=== PATIENT | female | born 1965 | race Caucasian/White ===

== ENCOUNTER 2023-07-21 11:54 | Emergency (ER) | payer SELFPAY ==
[2023-07-21 12:11] VITALS: BP 128/77; PULSE 81; RESP 17; TEMP 36.8; O2SAT 93; BMI 38.9
--- NOTE | 2023-07-21 13:20 | W.ED.BACK ---
HPI - Back Pain/Injury General: Chief Complaint: Back Pain/Injury Stated Complaint: low back pain/ hand are numb Time Seen by Provider: 07/21/23 13:15 History of Present Illness: 58-year-old female with a history of morbid obesity who presents emergency room with back pain. She has multiple somatic complaints. She says she fell a few weeks ago and has been having some tingling in her fingers. She is also having right low back pain after going to see her chiropractor. She is having some left sciatic type pain. No saddle numbness, no urinary retention or incontinence, no focal motor deficit, no sensory deficit. no recent fever. no cough. no shortness of breath. no chest pain. no abdominal pain. no nausea or vomiting. no dysuria. no altered mental status. no edema. Review of Systems Narrative: Constitutional symptoms: Negative except as documented in HPI. Skin symptoms: Negative except as documented in HPI. Eye symptoms: Negative except as documented in HPI. ENMT symptoms: Negative except as documented in HPI. Respiratory symptoms: Negative except as documented in HPI. Cardiovascular symptoms: Negative except as documented in HPI. Gastrointestinal symptoms: Negative except as documented in HPI. Genitourinary symptoms: Negative except as documented in HPI. Musculoskeletal symptoms: Negative except as documented in HPI. Neurologic symptoms: Negative except as documented in HPI. Psychiatric symptoms: Negative except as documented in HPI. Endocrine symptoms: Negative except as documented in HPI. Physical Exam Narrative: EXAM NARRATIVE: General: Alert, no acute distress. Head: Normocephalic Neck: Trachea midline Eye: Extraocular movements are intact. Ears, nose, mouth and throat: Oral mucosa moist Respiratory: Respirations are non-labored Musculoskeletal: Normal ROM Back: no step off, no focal tenderness, some paraspinal muscle tenderness Neurological: Alert and oriented to person, place, time, and situation, No focal neurological deficit observed. Psychiatric: Cooperative, appropriate mood & affect. Course Vital Signs: Vital signs: Vital Signs Temperature 98.2 F 07/21/23 12:11 Pulse Rate 81 07/21/23 12:11 Respiratory Rate 17 07/21/23 12:11 Blood Pressure 128/77 07/21/23 12:11 Pulse Oximetry 93 07/21/23 12:11 Oxygen Delivery Me thod Room Air 07/21/23 12:11 MDM - Back Pain/Injury Medical Decision Making Patient is having several somatic type complaints with no real trauma. I do not feel like x-rays would be beneficial today. We discussed this. She is having sciatic type pain. Lumbar muscle strain type pain. And some radicular type issues as well. We discussed that anti-inflammatories and a muscle relaxer would be the best course of action for this and if the pain persist she needs to go see her primary and consider physical therapy and then may be an MRI. Assessment and plan: - Discharged home - Discussed plan with patient. Answered any questions. - Evaluation and treatment of this problem were appropriate in the emergency setting. No radiology studies performed this visit Discharge Plan Discharge Patient Disposition: Home Clinical Impression: Strain of lumbar region Condition: Stable Prescriptions: New cyclobenzaprine 10 mg tablet 10 mg PO Q8H Qty: 20 0RF prednisone 20 mg tablet 60 mg PO DAILY Qty: 20 0RF Rx Instructions: 3 tabs (60 mg) x 3 days. 2 tabs (40 mg) x 3 days. 1 tab (20 mg) x 3 days. 1/2 tab (10 mg) x 4 days diclofenac sodium 50 mg tablet,delayed release (DR/EC) 50 mg PO Q12H Qty: 20 0RF Discharge Orders: Discharge ED (Routine); Ordered 07/21/23 Ordered By: Leatha Aguilar Discharge Diet: Usual diet Discharge Activity: Increase activity as tolerated Patient Instructions: Low Back Strain (ED), Lower Back Exercises (ED) Activity Restrictions/Additional Instructions: You have been screened and evaluated and felt safe for discharge. Health conditions do change or evolve sometimes and as such it is important that you follow up with your Primary Doctor to be re checked, 3-5 days is a general good time frame for follow up. You are always welcome to return to the ED for re assessment if your symptoms are worsening or you have new concerns Coding Level of Care Code ED [facility] Supervisor [facility] for Dave Guzman
[2023-07-21 13:56] VITALS: BP 103/58; PULSE 79; RESP 16; TEMP 36.8; O2SAT 94
== END 2023-07-21 13:57 | disposition home or self-care (01) ==
PROVIDERS: Emergency Provider Emergency Medicine
DX: S39.012A Strain of muscle, fascia and tendon of lower back, initial encounter (principal); W19.XXXA Unspecified fall, initial encounter
CPT/HCPCS: 99284